=== PATIENT | female | born 1995 | race Caucasian/White ===

== ENCOUNTER → 2018-11-29 17:06 | Outpatient (CLI) | payer OTHER, BC, SELFPAY ==
[2018-11-29 14:50] VITALS: BMI 45.1
[2018-12-14 15:43] LABS: HPV Reflexed? NOT INDICATED
== END ==
PROVIDERS: Family Provider Family Medicine; PCP Family Medicine; Referring Provider Obstetrics & Gynecology; Visit Provider Obstetrics & Gynecology
DX: Z12.4 Encounter for screening for malignant neoplasm of cervix (principal)
CPT/HCPCS: 88175; G0145

== ENCOUNTER → 2020-05-16 13:58 | Outpatient (CLI) | payer OTHER, BC, SELFPAY ==
[2020-05-16 13:35] VITALS: BMI 44.9
[2020-05-16 15:01] LABS: Cholesterol 201 mg/dL (200); Glucose 98 mg/dL (74-106); High Density Lipoprotein 53 mg/dL; Thyroid Stim Hormone (TSH) 1.44 uIU/mL (0.358-3.74); Triglycerides 206 mg/dL; Very Low Density Lipoprotein 41 mg/dL (5-40)
== END ==
PROVIDERS: PCP Family Medicine; Referring Provider Nurse Practitioner Women's Health; Visit Provider Nurse Practitioner Women's Health
DX: Z13.1 Encounter for screening for diabetes mellitus (principal); Z13.220 Encounter for screening for lipoid disorders; Z13.29 Encounter for screening for other suspected endocrine disorder
CPT/HCPCS: 36415; 80061; 82947; 84443

== ENCOUNTER 2021-06-17 08:46 | Outpatient (CLI) | payer BC, SELFPAY ==
[2021-06-17 09:42] LABS: Hemoglobin A1c 5.4 % (3.8-5.6)
[2021-06-17 09:50] LABS: Vitamin D,25 Hydroxy 15.5 ng/mL
[2021-06-17 09:55] LABS: Cholesterol 159 mg/dL (200); Glucose 132 mg/dL (74-106); Triglycerides 247 mg/dL
[2021-06-17 09:56] LABS: High Density Lipoprotein 41 mg/dL; Thyroid Stim Hormone (TSH) 1.95 uIU/mL (0.358-3.74); Very Low Density Lipoprotein 49 mg/dL (5-40)
[2021-06-18 22:06] LABS: Chlamydia By Nucleic Acid AMP Negative (Negative)
[2021-06-19 10:46] LABS: Gonococcus By Nucleic Acid AMP Negative (Negative)
[2021-06-24 14:56] LABS: HPV Reflexed? NOT INDICATED
== END 2021-06-17 23:59 | disposition home or self-care (01) ==
PROVIDERS: PCP Family Medicine; Referring Provider Nurse Practitioner Women's Health; Visit Provider Nurse Practitioner Women's Health
DX: E28.2 Polycystic ovarian syndrome (principal); Z12.4 Encounter for screening for malignant neoplasm of cervix; Z11.3 Encounter for screening for infections with a predominantly sexual mode of transmission; Z13.1 Encounter for screening for diabetes mellitus; Z13.220 Encounter for screening for lipoid disorders; Z13.29 Encounter for screening for other suspected endocrine disorder
CPT/HCPCS: 36415; 80061; 82306; 82947; 83036; 84443; 87491; 87591; 88175; G0145

== ENCOUNTER 2021-06-21 08:33 | Outpatient (CLI) | payer BC, SELFPAY ==
--- NOTE | 2021-06-21 08:36 | BI_ITS ---
MAMMOGRAPHY - BILATERAL SCREENING REASON FOR EXAM: Female, 25 years old. Routine annual screening examination. PERTINENT HISTORY: Sister with breast cancer. Grandmother with breast cancer. Aunts with breast cancer. TECHNIQUE: Digital bilateral breast john (3D mammographic acquisition) in the CC and MLO projections. 2-D mediolateral oblique (MLO) and craniocaudad (CC) views of both breasts were obtained. CAD: Full Field Digital Mammography with Computer Added Detection was performed. COMPARISON: None. Baseline examination. FINDINGS: Breast Composition: The breasts are heterogeneously dense, which may obscure small masses. There are no dominant masses or suspicious calcifications. Small bilateral axillary lymph nodes. No other significant abnormalities are identified. BI/SCRN MAMM (CAD)W/JOHN BILAT IMPRESSION: Negative screening mammogram. Yearly followup mammogram recommended. (A) ASSESSMENT CATEGORY: BIRADS Category 2: Benign. A letter regarding these results will be sent to the patient by the facility within 30 days. Approximately 10% of breast cancers are not detected by mammography. A normal mammogram should not delay biopsy of a clinically suspicious abnormality. [id number] Electronically Signed: Sharif Acharya MD at 10:36 EDT ,
== END 2021-06-21 23:59 | disposition home or self-care (01) ==
LOC: OPBI 08:35
PROVIDERS: PCP Family Medicine; Referring Provider Nurse Practitioner Women's Health; Visit Provider Nurse Practitioner Women's Health
DX: Z12.31 Encounter for screening mammogram for malignant neoplasm of breast (principal)
CPT/HCPCS: 77063; 77067

== ENCOUNTER 2022-02-28 10:11 | Emergency (ER) | payer BC, SELFPAY ==
[2022-02-28 10:13] VITALS: BP 189/104; PULSE 116; RESP 17; TEMP 35.8; O2SAT 100; BMI 45.9
--- NOTE | 2022-02-28 10:27 | ED.VIS.BACK ---
HPI History of Present Illness Chief Complaint: Back Informant: patient Onset/Context/Timing Onset: Today (Awoke from sleep with right lower back pain radiating to buttocks and lateral side of right leg.) Context: Sudden Onset Injury: - (Unaware of any injury) Timing: Continuous Quality: Dull Location: Lumbar, Buttock and Right Leg Current Severity: Mild Maximum Severity: Moderate Worsened by: improves with Nothing Relieved by: Nothing Associated Symptoms Associated Symptoms: Radiation to Right Leg; Negative for Numbness, Tingling, Fever, Abdominal Pain, Dysuria, Unable to Ambulate, Unable to Transfer, Urinary Retention, Urinary Incontinence, Constipation or Fecal Incontinence Narrative Narrative: Patient is a 26-year-old female who presents with right lower back pain. She works at a childcare center. She does not know of any injury. She denies fever, chills night sweats. She denies bowel bladder dysfunction. Denies saddle paresthesia or anesthesia. She denies foot drop. She denies recent dental procedure. Prior similar symptoms: Yes (Several years ago.) Recent Illness/Hospitalization: No PFSH PFSH Medical History Cervical cancer screening COVID-19 Home Medications norethindrone 1 mg-ethinyl estradiol 20 mcg (24)-iron 75 mg (4) tablet (Blisovi 24 Fe) 1 tab PO DAILY #84 tabs 06/17/21 [Rx Last Taken Unknown] naproxen 500 mg tablet 500 mg PO BID #14 tabs 02/28/22 [Rx Last Taken Unknown] Allergy/AdvReac Type Severity Reaction Status Date / Time No Known Allergies Allergy Verified 02/28/22 10:12 Family History Mother Diabetes Thyroid disorder Grandmother Cancer ovarian Diabetes Father Hypertension Surgical History History of tonsillectomy Social History current occupational status: employed current occupation: [employer] in [place] Smoking Status: Never smoker alcohol intake: never substance use type: does not use caffeine: Yes what type of physical activity do you participate in: walking seatbelt use: always do you feel safe at home: Yes additional social history: single Works at [employer] in [place] and takes care of sister in the AM ROS ROS ED Constitutional Constitutional ED: Denies chills, fever(s), subjective, sweats or weight loss Respiratory/Chest Respiratory/Chest: Denies dyspnea or dyspnea on exertion Gastrointestinal Gastrointestinal: Denies abdominal pain, constipation, melena, nausea or vomiting Genitourinary Genitourinary ED: Denies dysuria or hematuria Musculoskeletal Musculoskeletal: Reports back pain; Denies arthralgias, myalgias or neck pain Integumentary Denies Abrasions or rash Neurologic Neurologic: Denies headache(s), paresthesias or weakness Hematologic/Lymphatic Hematologic/Lymphatic: Denies easy bleeding or easy bruising EXAM Physical Exam Const Vital Signs: 02/28/22 10:13 Temperature 96.5 F L Temperature Source Temporal Pulse Rate 116 H Respiratory Rate 17 Blood Pressure 189/104 H Blood Pressure Mean 132 Pulse Ox 100 Oxygen Delivery Method Room Air Positive well nourished, well developed and obese General Appearance ED: well developed and NAD; Negative for pallor Nutritional Appearance: obese HEENT Reports moist mucous membranes HEENT Narrative: Head is atraumatic normocephalic. Ears normal. Nares patent. There is no drainage. Eyes PERRL and EOMs intact bilaterally General Eye ED: Negative for pale conjunctiva or scleral icterus Neck no lymphadenopathy and supple Resp normal respiratory effort and clear to auscultation bilaterally Cardio regular rate, regular rhythm, S1 normal heart sound, S2 normal heart sound and no murmurs GI normal to inspection, nondistended, normoactive bowel sounds, soft to palpation, non-tender, non-distended and no masses Back/Spine normal to inspection; Negative for no thoracic nor lumbar tenderness Back/Spine Narrative: Patella and ankle reflex are 2+ and symmetric. EHLs intact. Sensation over L3, L4, L5 and S1 dermatome are intact. Gait was observed. There is no foot drop. She is able to walk on heels and toes. She is able to perform a 1 legged squat right leg and left leg. General Back: Negative for CVA tenderness Cervical Spine: Negative for cervical spine tenderness Thoracic Spine / Upper Back: paraspinal muscle tenderness Lumbar Spine / Lower Back: ROM limited and straight leg raise negative bilaterally Extremity normal to inspection and no clubbing, cyanosis or edema General Extremety ED: Negative for edema General Extremity: Negative for edema Neuro oriented x3 and no sensory deficits noted Sensorium / Orientation: alert Motor Exam: strength 5/5 throughout Deep Tendon Reflexes: Rt Patellar (L4): 2+, Lt Patellar (L4): 2+, Rt Ankle (S1): 2+ and Lt Ankle (S1): 2+ Deep Tendon Reflexes Back: Rt Patellar (L4): 2+, Lt Patellar (L4): 2+, Rt Ankle (S1): 2+ and Lt Ankle (S1): 2+ Plantar Reflex: Downgoing: bilateral Psych mental status grossly normal Skin no rashes or lesions noted and no wounds General Skin Exam: Negative for jaundice or pallor MDM MDM MDM Narrative Medical decision making narrative: History and physicals consistent with musculoskeletal low back pain. There is no concern for cauda equina or herniated disc. Since there is no contraindication patient was treated with NSAID. She was instructed to apply ice 6-10 times a day. She states she is off today. She was informed to avoid movement that exacerbates her pain. Discharge Plan Triage Chief Complaint: Back ED Provider: Dami Eldridge Dx/Rx/DC Orders Clinical Impression: Acute right-sided low back pain without sciatica, BMI 45.0-49.9, adult Instructions: ED Back Pain (Acute or Chronic) Prescriptions: New naproxen 500 mg tablet 500 mg PO BID Qty: 14 0RF No Action norethindrone-e.estradiol-iron [Blisovi 24 Fe] 1 mg-20 mcg (24)/75 mg (4) tablet 1 tab PO DAILY Qty: 84 4RF Primary Care Provider: Vikash Geller Referrals: Vikash Geller MD [Primary Care Provider] - 1 Week if not improving Activity Restrictions/Additional Instructions: 1. Avoid activity that causes you increased pain. 2. Apply ice 6-10 times a day Disposition Disposition: Home, Self Care
[2022-02-28] MEDS: Naproxen 250 MG Tablet 500 MG PO (10:31)
[2022-02-28] MEDS: HYDROcodone Bitartrate/Apap 5/325 Tablet PO (10:32)
== END 2022-02-28 10:43 | disposition home or self-care (01) ==
PROVIDERS: Emergency Provider Emergency Medicine; PCP Family Medicine; Visit Provider Emergency Medicine
DX: M54.50 Low back pain, unspecified (principal); Z68.42 Body mass index [BMI] 45.0-49.9, adult; E66.9 Obesity, unspecified; Z86.16 Personal history of COVID-19
CPT/HCPCS: 99283

== ENCOUNTER → 2022-07-23 | Outpatient (CLI) | payer BC, SELFPAY ==
--- NOTE | 2022-07-23 07:57 | BI_ITS ---
MAMMOGRAPHY - BILATERAL SCREENING REASON FOR EXAM: Female, 26 years old. Routine annual screening examination. PERTINENT HISTORY: Sister with breast cancer. Grandmother with breast cancer. TECHNIQUE: Digital bilateral breast john (3D mammographic acquisition) in the CC and MLO projections. 2-D mediolateral oblique (MLO) and craniocaudad (CC) views of both breasts were obtained. CAD: Full Field Digital Mammography with Computer Added Detection was performed. COMPARISON: Comparison is made with prior study June 21, 2021. FINDINGS: Breast Composition: The breasts are heterogeneously dense, which may obscure small masses. There are no dominant masses or suspicious calcifications. Stable small benign-appearing bilateral axillary lymph nodes. No other significant abnormalities are identified. There has been no significant change since the prior study. BI/SCRN MAMM (CAD)W/JOHN BILAT IMPRESSION: Stable bilateral screening mammogram. Yearly follow-up mammogram recommended. (A) ASSESSMENT CATEGORY: BIRADS Category 2: Benign. A letter regarding these results will be sent to the patient by the facility within 30 days. Approximately 10% of breast cancers are not detected by mammography. A normal mammogram should not delay biopsy of a clinically suspicious abnormality. [id number] Electronically Signed: Sharif Acharya MD at 9:44 EDT ,
== END | disposition home or self-care (01) ==
LOC: OPBI 07:55
PROVIDERS: PCP Family Medicine; Referring Provider Nurse Practitioner Women's Health; Visit Provider Nurse Practitioner Women's Health
DX: Z12.31 Encounter for screening mammogram for malignant neoplasm of breast (principal); Z80.3 Family history of malignant neoplasm of breast
CPT/HCPCS: 77063; 77067

== ENCOUNTER → 2022-09-22 | Outpatient (CLI) | payer BC, SELFPAY ==
[2022-09-22 14:46] LABS: Thyroid Stim Hormone (TSH) 2.58 uIU/mL (0.358-3.74)
[2022-09-22 14:49] LABS: hCG Titer Quant., Serum < 1 mIU/mL (1-3)
== END | disposition home or self-care (01) ==
LOC: PAVLAB 13:57
PROVIDERS: PCP Family Medicine; Referring Provider Nurse Practitioner Women's Health; Visit Provider Nurse Practitioner Women's Health
DX: R53.83 Other fatigue (principal); N91.2 Amenorrhea, unspecified
CPT/HCPCS: 36415; 84443; 84702

== ENCOUNTER → 2023-08-27 | Outpatient (CLI) | payer BC, SELFPAY ==
[2023-08-27 08:49] LABS: hCG Titer Quant., Serum 113 mIU/mL (1-3)
== END | disposition home or self-care (01) ==
LOC: LAB 07:57
PROVIDERS: PCP Family Medicine; Referring Provider Nurse Practitioner Women's Health; Visit Provider Nurse Practitioner Women's Health
DX: O26.859 Spotting complicating pregnancy, unspecified trimester (principal); Z3A.00 Weeks of gestation of pregnancy not specified
CPT/HCPCS: 36415; 84702; 86850; 86900; 86901

== ENCOUNTER → 2023-08-29 | Outpatient (CLI) | payer BC, SELFPAY ==
[2023-08-29 09:14] LABS: hCG Titer Quant., Serum 337 mIU/mL (1-3)
== END | disposition home or self-care (01) ==
LOC: OLS.ABSOLU 08:09 → LAB 08:11
PROVIDERS: PCP Family Medicine; Referring Provider Registered Nurse; Visit Provider Registered Nurse
DX: Z3A.00 Weeks of gestation of pregnancy not specified (principal)
CPT/HCPCS: 36415; 84702

== ENCOUNTER → 2023-09-01 | Outpatient (CLI) | payer BC, SELFPAY ==
[2023-09-01 18:41] LABS: hCG Titer Quant., Serum 1627 mIU/mL (1-3)
== END | disposition home or self-care (01) ==
LOC: LAB 16:12
PROVIDERS: Obstetrics & Gynecology; PCP Family Medicine; Referring Provider Registered Nurse; Visit Provider Registered Nurse
DX: O26.859 Spotting complicating pregnancy, unspecified trimester (principal); Z3A.00 Weeks of gestation of pregnancy not specified
CPT/HCPCS: 36415; 84702

== ENCOUNTER → 2023-09-11 | Outpatient (CLI) | payer BC, SELFPAY ==
[2023-09-11 14:10] LABS: hCG Titer Quant., Serum 20579 mIU/mL (1-3)
== END | disposition home or self-care (01) ==
LOC: PAVLAB 11:00
PROVIDERS: PCP Family Medicine; Referring Provider Obstetrics & Gynecology; Visit Provider Obstetrics & Gynecology
DX: O26.859 Spotting complicating pregnancy, unspecified trimester (principal); Z3A.00 Weeks of gestation of pregnancy not specified
CPT/HCPCS: 36415; 84702

== ENCOUNTER → 2023-09-13 | Outpatient (CLI) | payer BC, SELFPAY ==
[2023-09-13 12:20] LABS: hCG Titer Quant., Serum 27865 mIU/mL (1-3)
== END | disposition home or self-care (01) ==
PROVIDERS: PCP Family Medicine; Visit Provider Obstetrics & Gynecology
DX: O26.859 Spotting complicating pregnancy, unspecified trimester (principal)
CPT/HCPCS: 36415; 84702

== ENCOUNTER → 2023-09-16 | Outpatient (CLI) | payer BC, SELFPAY ==
--- NOTE | 2023-09-16 16:53 | US_ITS ---
STUDY: FIRST TRIMESTER OBSTETRICAL ULTRASOUND REASON FOR EXAM: Female, 27 years old viability LMP: 07/30/2023 TECHNIQUE: Transvaginal TECHNICAL QUALITY: Adequate. PRIOR ULTRASOUND: None. FINDINGS: There is visualization of a single gestational sac in a normal intrauterine position. The mean sac diameter (MSD) measures 22 mm, indicating an estimated gestational age (EGA) of 7 weeks, 1 days. The gestational sac shape is within normal limits. There is a visualized yolk sac. The yolk sac measures 3 mm. The placenta is non-visualized. There is visualization of a live embryo. The crown-rump length (CRL) measures 7 mm, indicating an estimated gestational age (EGA) of 6 weeks, 5 days. There is demonstrated cardiac activity with a heart rate of 1:30 bpm. The estimated gestation age (EGA) by LMP is 6 weeks, 6 days. The estimated date of delivery (BRITTANIE) by LMP is 05/05/2024. The estimated gestation age (EGA) by US is 7 weeks, 0 days. The estimated date of delivery (BRITTANIE) by US is 05/04/2024. The uterus measures 8.8 x 5.7 x 4.6 cm. There is no demonstrated uterine fibroid. The cervix is closed. The right ovary measures 3.0 x 2.2 x 2.0 cm. There is no right ovarian cyst. There is no visualized right adnexal mass or complex lesion. The left ovary measures 3.3 x 1.9 x 1.9 cm. There is no left ovarian cyst. There is no visualized left adnexal mass or complex lesion. There is no fluid in the cul de sac. US/Transvaginal w/Preg US IMPRESSION: Living intrauterine of 7 weeks 0 days as described above. Electronically Signed: Rian Virk MD at 9:36 EDT ,
== END | disposition home or self-care (01) ==
LOC: US 16:52
PROVIDERS: PCP Family Medicine; Referring Provider Obstetrics & Gynecology; Visit Provider Obstetrics & Gynecology
DX: O26.859 Spotting complicating pregnancy, unspecified trimester (principal); Z3A.00 Weeks of gestation of pregnancy not specified
CPT/HCPCS: 76817

== ENCOUNTER → 2023-09-18 | Outpatient (CLI) | payer BC, SELFPAY ==
[2023-09-21 05:06] LABS: Chlamydia By Nucleic Acid AMP Negative (Negative); Gonococcus By Nucleic Acid AMP Negative (Negative)
== END | disposition home or self-care (01) ==
LOC: LABSPEC 12:10
PROVIDERS: PCP Family Medicine; Referring Provider Advanced Practice Midwife; Visit Provider Advanced Practice Midwife
DX: Z34.90 Encounter for supervision of normal pregnancy, unspecified, unspecified trimester (principal)
CPT/HCPCS: 87491; 87591

== ENCOUNTER → 2023-10-08 | Outpatient (CLI) | payer BC, SELFPAY ==
[2023-10-08 18:13] LABS: Protein, Urine (Random) 12.7 mg/dL (<11.9); Protein:Creat Ratio 126 mg/g CRE (0-200)
== END | disposition home or self-care (01) ==
LOC: LAB 17:12
PROVIDERS: PCP Family Medicine; Referring Provider Advanced Practice Midwife; Visit Provider Advanced Practice Midwife
DX: O24.919 Unspecified diabetes mellitus in pregnancy, unspecified trimester (principal); Z3A.00 Weeks of gestation of pregnancy not specified; O99.210 Obesity complicating pregnancy, unspecified trimester
CPT/HCPCS: 82570; 84156; 87086; 87088

== ENCOUNTER → 2023-11-06 | Outpatient (CLI) | payer OTHER, SELFPAY ==
[2023-11-06 12:45] LABS: Absolute Lymphocyte Count 2.51 X10^3/uL (0.83-4.51); Absolute Neutrophil Count 8.6 X10^3/uL (2.0-7.7); Basophil# 0.04 X10^3/uL; Basophil% 0.3 % (0-1); Eosinophil# 0.07 X10^3/uL; Eosinophils% 0.6 % (0-5); Hematocrit 35.1 % (37-47); Hemoglobin 11.6 g/dL (12.0-15.0); Lymphocyte # 2.51 X10^3/ul (0.83-4.51); Lymphocyte % 21.1 % (19-41); Mean Corpuscular Hgb 27.2 pg (27.0-32.0); Mean Corpuscular Volume 82.2 fL (81-99); Mean Platelet Vol. 11.5 fl (6.2-12.0); Monocyte# 0.64 X10^3/uL; Monocyte% 5.4 % (0-10); NRBC Flagged by Analyzer 0 % (0-5); Neutrophil # 8.57 X10^3/uL (2.7-7.7); Neutrophil % 72.1 % (47-70); Platelet Count 262 K/mm3 (150-450); RBC Distribution Width CV 15.4 % (11.6-14.6); RBC Distribution Width SD 46.1 fl (35.1-43.9); Red Blood Count 4.27 M/mm3 (4.2-5.4); White Blood Count 11.9 K/mm3 (4.4-11.0)
[2023-11-06 13:49] LABS: ALB/GLOB Ratio 0.7 RATIO (0.9-2.4); AST(SGOT) 30 U/L (15-37); Alanine Aminotransfer ALT/SGPT 48 U/L (13-56); Albumin, Serum 3.2 g/dL (3.2-5.0); Alkaline Phosphatase 66 U/L (45-117); Anion Gap 7 (5-15); BUN 8 mg/dL (7-18); BUN/Creat Ratio 12.9 RATIO (10-20); Calcium,Total 9.9 mg/dL (8.5-10.1); Chloride 109 mmol/L (98-107); Creatinine, Serum 0.62 mg/dL (0.55-1.02); EST Glomerular Filtration Rate 124 mL/min (>60); Est Glom Filt Rate - Afr Amer 150 mL/min (>60); Globulin 4.4 g/dL (2.2-4.2); Glucose 102 mg/dL (74-106); Potassium 3.8 mmol/L (3.5-5.1); Protein, Total 7.6 g/dL (6.4-8.2); Sodium Level 137 mmol/L (136-145)
[2023-11-06 14:18] LABS: HIV - WCH Non-Reactive (Nonreactive); Hepatitis B Surface Antigen Non-Reactive (Nonreactive); Hepatitis C Antibody Non-Reactive (Nonreactive); Rubella IgG Reactive (Nonreactive); Syphilis Antibodies Non-reactive
== END | disposition home or self-care (01) ==
LOC: LAB 12:18
PROVIDERS: PCP Family Medicine; Referring Provider Advanced Practice Midwife; Visit Provider Advanced Practice Midwife
DX: O24.919 Unspecified diabetes mellitus in pregnancy, unspecified trimester (principal); O09.90 Supervision of high risk pregnancy, unspecified, unspecified trimester; Z3A.00 Weeks of gestation of pregnancy not specified
CPT/HCPCS: 36415; 80053; 83036; 84443; 85025; 86703; 86762; 86780; 86803; 86850; 86900; 86901; 87340

== ENCOUNTER → 2023-12-29 | Outpatient (CLI) | payer OTHER, SELFPAY | END | disposition home or self-care (01) | LOC: LABSPEC 15:16 | PROVIDERS: PCP Family Medicine; Referring Provider Advanced Practice Midwife; Visit Provider Advanced Practice Midwife | DX: O26.899 Other specified pregnancy related conditions, unspecified trimester (principal); R30.0 Dysuria; Z3A.00 Weeks of gestation of pregnancy not specified | CPT/HCPCS: 87086; 87088 ==

== ENCOUNTER → 2024-01-29 | Outpatient (CLI) | payer OTHER, SELFPAY ==
[2024-01-29 12:22] LABS: Absolute Lymphocyte Count 2.56 X10^3/uL (0.83-4.51); Absolute Neutrophil Count 11.6 X10^3/uL (2.0-7.7); Basophil# 0.04 X10^3/uL; Basophil% 0.3 % (0-1); Eosinophil# 0.06 X10^3/uL; Eosinophils% 0.4 % (0-5); Hematocrit 33.8 % (37-47); Lymphocyte # 2.56 X10^3/ul (0.83-4.51); Mean Corp Hgb Conc 32.5 g/dL (32-36); Mean Corpuscular Hgb 26.8 pg (27.0-32.0); Mean Corpuscular Volume 82.4 fL (81-99); Mean Platelet Vol. 12.2 fl (6.2-12.0); Monocyte# 0.65 X10^3/uL; Monocyte% 4.3 % (0-10); NRBC Flagged by Analyzer 0 % (0-5); Neutrophil # 11.64 X10^3/uL (2.7-7.7); Neutrophil % 77.1 % (47-70); Platelet Count 241 K/mm3 (150-450); RBC Distribution Width CV 15.2 % (11.6-14.6); RBC Distribution Width SD 45.1 fl (35.1-43.9); White Blood Count 15.1 K/mm3 (4.4-11.0)
[2024-01-29 13:21] LABS: HIV - WCH Non-Reactive (Nonreactive); Syphilis Antibodies Non-reactive
== END | disposition home or self-care (01) ==
LOC: BWCLAB 10:31
PROVIDERS: PCP Family Medicine; Referring Provider Obstetrics & Gynecology; Visit Provider Obstetrics & Gynecology
DX: O09.90 Supervision of high risk pregnancy, unspecified, unspecified trimester (principal); Z3A.00 Weeks of gestation of pregnancy not specified
CPT/HCPCS: 36415; 85025; 86703; 86780

== ENCOUNTER 2024-03-22 14:20 | Outpatient (CLI) | payer OTHER, SELFPAY ==
[2024-03-22] VITALS (7 sets, daily range): BP systolic 111–123; BP diastolic 55–67; PULSE 62–122; RESP 18; TEMP 36.4; O2SAT 80; BMI 50.2
[2024-03-22] MEDS: 0.9% Saline Lock 10 ML Syringe IV (15:37)
[2024-03-22] MEDS: Acetaminophen 500 MG Tablet 1000 MG PO (15:43)
[2024-03-22 15:48] LABS: Hematocrit 33.1 % (37-47); Mean Corp Hgb Conc 33.2 g/dL (32-36); Mean Corpuscular Hgb 26.3 pg (27.0-32.0); Mean Platelet Vol. 11.6 fl (6.2-12.0); Platelet Count 242 K/mm3 (150-450); RBC Distribution Width CV 15.9 % (11.6-14.6); RBC Distribution Width SD 44.7 fl (35.1-43.9); Red Blood Count 4.19 M/mm3 (4.2-5.4); White Blood Count 16.5 K/mm3 (4.4-11.0)
[2024-03-22 16:09] LABS: Protein, Urine (Random) < 6.0 mg/dL (<11.9)
[2024-03-22 16:15] LABS: AST(SGOT) 10 U/L (15-37); Alanine Aminotransfer ALT/SGPT 12 U/L (13-56); Creatinine, Serum 0.66 mg/dL (0.55-1.02); EST Glomerular Filtration Rate 115 mL/min (>60); Est Glom Filt Rate - Afr Amer 139 mL/min (>60); Estimated Creatinine Clearance 187.64 ml/min; Uric Acid 3.6 mg/dL (2.6-6.0)
--- NOTE | 2024-03-22 16:42 | OB.TRI.PN ---
Progress Notes Date of Service: 03/22/24 Progress Note: elevated bp in office 140 moderate variability reactive no decelerations category I tracing Primrose: no regular 33 week elevate dbps normal labs and repeat BP WNL headache improving dc home Laboratory Studies: Laboratory Tests 03/22/24 Range/Units 15:35 WBC 16.5 H (4.4-11.0) K/mm3 RBC 4.19 L (4.2-5.4) M/mm3 Hgb 11.0 L (12.0-15.0) g/dL Hct 33.1 L (37-47) % MCV 79.0 L (81-99) fL MCH 26.3 L (27.0-32.0) pg MCHC 33.2 (32-36) g/dL RDW Std Deviation 44.7 H (35.1-43.9) fl RDW Coeff of Dannielle 15.9 H (11.6-14.6) % Plt Count 242 (150-450) K/mm3 MPV 11.6 (6.2-12.0) fl Creatinine 0.66 (0.55-1.02) mg/dL Estim Creat Clear Calc 187.64 ml/min Est GFR (MDRD) Af Amer 139 (>60) mL/min Est GFR (MDRD) Non-Af 115 (>60) mL/min Uric Acid 3.6 (2.6-6.0) mg/dL AST 10 L (15-37) U/L ALT 12 L (13-56) U/L U Random Total Protein < 6.0 (<11.9) mg/dL Urine Creatinine 17.90 (NO RANGE EST.) mg/dL Protein/Creatinin Ratio TNP Blood Type A POSITIVE Antibody Screen NEGATIVE Charges/Coding Procedures Urinary/Genital [id number]-59xxx: [id number] non-stress test Interp Assessment & Plan (1) Hypertension affecting : COMMENT: Procardia XL 30mg started and then held. baseline labs done. baby ASA recommended. [facility] comanaging. echo 22 wk WNL. deliver 37 weeks. (2) Obesity affecting : COMMENT: BMI 48 in 1 TM. abnl HgA1C in 1 TM. encouraged healthy weight gain. (3) Diabetes: COMMENT: insulin managed by [facility], 2x weekly bpp at [facility] 32 on. (4) : QUALIFIERS: Weeks of gestation: 33 weeks Qualified Code(s): Z3A.33 - 33 weeks gestation of COMMENT: DOC ONLY, discussed NIPT and carrier, NT WNL, nl anatomy (5) Supervision of high risk , antepartum: COMMENT: PRR BRITTANIE 05/04/24 girl [place]
[2024-03-23 14:00] LABS: ALB/GLOB Ratio 0.7 RATIO (0.9-2.4); AST(SGOT) 13 U/L (15-37); Alanine Aminotransfer ALT/SGPT 14 U/L (13-56); Albumin, Serum 2.8 g/dL (3.2-5.0); Alkaline Phosphatase 97 U/L (45-117); Anion Gap 9 (5-15); BUN 8 mg/dL (7-18); BUN/Creat Ratio 12.8 RATIO (10-20); Calcium,Total 9.4 mg/dL (8.5-10.1); Chloride 110 mmol/L (98-107); Creatinine, Serum 0.63 mg/dL (0.55-1.02); EST Glomerular Filtration Rate 122 mL/min (>60); Est Glom Filt Rate - Afr Amer 148 mL/min (>60); Estimated Creatinine Clearance 196.58 ml/min; Globulin 4.3 g/dL (2.2-4.2); Glucose 120 mg/dL (74-106); Potassium 3.9 mmol/L (3.5-5.1); Protein, Total 7.1 g/dL (6.4-8.2); Sodium Level 137 mmol/L (136-145)
== END 2024-03-22 16:44 | disposition home or self-care (01) ==
LOC: WPOUT 14:29 → WP 14:29
PROVIDERS: PCP Family Medicine; Referring Provider Obstetrics & Gynecology; Visit Provider Obstetrics & Gynecology
DX: O16.3 Unspecified maternal hypertension, third trimester (principal); Z3A.33 33 weeks gestation of pregnancy; O99.213 Obesity complicating pregnancy, third trimester; O24.419 Gestational diabetes mellitus in pregnancy, unspecified control
CPT/HCPCS: 36415; 59025; 59050; 80053; 82565; 82570; 84156; 84450; 84460; 84550; 85027; 86850; 86900; 86901; 99221; A4216; G0378

== ENCOUNTER → 2024-04-07 | Outpatient (CLI) | payer OTHER, SELFPAY | END | disposition home or self-care (01) | LOC: LABSPEC 16:54 | PROVIDERS: PCP Family Medicine; Referring Provider Obstetrics & Gynecology; Visit Provider Obstetrics & Gynecology | DX: O09.90 Supervision of high risk pregnancy, unspecified, unspecified trimester (principal); Z3A.00 Weeks of gestation of pregnancy not specified | CPT/HCPCS: 87081 ==

== ENCOUNTER 2024-04-13 19:29 | Inpatient (IN) | payer OTHER, SELFPAY ==
[2024-04-13 19:23] VITALS: BMI 50.4
[2024-04-13 19:50] VITALS: RESP 18; TEMP 36.4
[2024-04-13 19:51] VITALS: BP 141/88; PULSE 112
[2024-04-13] MEDS: Lactated Ringers 1,000 ML 50 ML IV (20:00)
[2024-04-13 20:18] LABS: Absolute Lymphocyte Count 2.49 X10^3/uL (0.83-4.51); Absolute Neutrophil Count 12.8 X10^3/uL (2.0-7.7); Basophil# 0.04 X10^3/uL; Basophil% 0.2 % (0-1); Eosinophil# 0.03 X10^3/uL; Eosinophils% 0.2 % (0-5); Lymphocyte # 2.49 X10^3/ul (0.83-4.51); Lymphocyte % 15.5 % (19-41); Mean Corp Hgb Conc 33.3 g/dL (32-36); Mean Corpuscular Hgb 26.1 pg (27.0-32.0); Mean Corpuscular Volume 78.4 fL (81-99); Mean Platelet Vol. 11.8 fl (6.2-12.0); Monocyte# 0.61 X10^3/uL; Monocyte% 3.8 % (0-10); NRBC Flagged by Analyzer 0 % (0-5); Neutrophil % 79.7 % (47-70); Platelet Count 244 K/mm3 (150-450); RBC Distribution Width SD 45.1 fl (35.1-43.9); Red Blood Count 4.21 M/mm3 (4.2-5.4); White Blood Count 16.1 K/mm3 (4.4-11.0)
[2024-04-13 20:28] LABS: Bedside Glucose 140 mg/dL (74-106)
[2024-04-13] MEDS: miSOPROStol 25 MCG TABLET PO (20:56)
[2024-04-13 20:57] VITALS: BP 142/75; PULSE 99
[2024-04-13 21:13] LABS: Syphilis Antibodies Non-reactive
[2024-04-13 21:54] LABS: Bedside Glucose 119 mg/dL (74-106)
[2024-04-13 22:09] LABS: Partial Thromboplast Time 24.3 Seconds (24.1-36.2); Prothrombin Time (Protime)PT. 13.7 SECONDS (11.7-14.9)
[2024-04-13] MEDS: Insulin Glargine-YFGN 100 UNIT/ML Pen 48 UNIT SC (22:14)
[2024-04-13 22:15] LABS: AST(SGOT) 11 U/L (15-37); Alanine Aminotransfer ALT/SGPT 13 U/L (13-56); Creatinine, Serum 0.81 mg/dL (0.55-1.02); EST Glomerular Filtration Rate 91 mL/min (>60); Est Glom Filt Rate - Afr Amer 110 mL/min (>60); Estimated Creatinine Clearance 153.36 ml/min; Uric Acid 4.7 mg/dL (2.6-6.0)
[2024-04-13 22:27] LABS: LDH 155 U/L (84-246)
[2024-04-13 23:21] LABS: Bedside Glucose 97 mg/dL (74-106)
[2024-04-13] MEDS: NIFEdipine 30 MG Tablet PO (23:38)
[2024-04-13 23:46] LABS: Mucous, Urine 0 SEEN /hpf (<or=2+); Red Blood Cells-Urine 0 SEEN /hpf (0-5)
[2024-04-13 23:48] LABS: Color, Urine Yellow (Yellow); Glucose, Dipstick Normal (Normal); Ketone-Dipstick Negative (Negative); Leukocyte Esterase-Dipstick 500 /ul (Negative); Nitrite-Dipstick Negative (Negative); Occult Blood-Urine Negative /ul (Negative); Protein-Dipstick 15 mg/dl (Negative); Specific Gravity, Urine 1.015 (1.002-1.030); Urine Bilirubin Dipstick Negative (Negative); Urine Clarity Clear (Clear); Urine Urobilinogen Normal (Normal)
[2024-04-14] VITALS (37 sets, daily range): BP systolic 76–153; BP diastolic 40–88; PULSE 8–136; RESP 16–20; TEMP 36.1–37.1; O2SAT 79–98
[2024-04-14 00:15] LABS: Protein:Creat Ratio 188 mg/g CRE (0-200)
[2024-04-14 00:23] LABS: Bacteria RARE /hpf (None Seen); Squamous Epithelial Cells - UA 0-5 SEEN /hpf (5-10); Transitional Epithelial - Ur 0-5 SEEN /hpf (0-5); White Blood Cells 5-10 SEEN /hpf (0-5)
[2024-04-14] MEDS: miSOPROStol 50 MCG TABLET PO ×2 (00:38→06:47)
[2024-04-14 03:17] LABS: Bedside Glucose 78 mg/dL (74-106)
[2024-04-14 07:11] LABS: Bedside Glucose 101 mg/dL (74-106)
[2024-04-14] MEDS: 0.9% Normal Saline Single 100 ML IV.SOLN. INTRA-UTER (09:10)
--- NOTE | 2024-04-14 09:23 | HP.PCM.OB_ITS ---
HPI - General General Date of Admission: 04/13/24 HPI Narrative GINO SHARIF, is a 28 y/o @ 37 weeks who presents to L&D for IOL for chronic hypertension and diabetes. Maternal Data Information BRITTANIE Calculator Estimated Delivery Date Method Current WG Current Estimate 05/04/24 Ultrasound #1 37w 1d Other Estimates 04/30/24 Ultrasound #2 37w 5d PFSH PFSH Medical History (Updated 04/13/24 @ 20:20 by Tristan Belle) Headache Chronic hypertension Seasonal allergies Acute sinusitis Eustachian tube dysfunction Back pain of lumbar region with sciatica Back pain Fatigue Cervical cancer screening Family history of breast cancer in sister COVID-19 PCOS (polycystic ovarian syndrome) Home Medications ?Medication ?Instructions ?Recorded ?Last Taken ?Type PNV 153-FA 400 mcg-om3 35 mg-dha 1 tab PO DAILY Pregna ncy 10/02/23 04/13/24 History 25 mg-epa 5 mg-fish oil chew tablet insulin glargine 100 unit/mL 48 unit subcut QAM DM 04/13/24 History subcutaneous solution (Lantus U-100 Insulin) sucralfate 1 gram tablet (Carafate) 1 g PO BID reflux #60 tabs 01/29/24 03/30/24 Rx valacyclovir 1 gram tablet 1,000 mg PO .COMPLEX cold s ores #4 02/23/24 02/11/24 Rx tabs insulin glargine 100 unit/mL 48 unit subcut QHS DM 04/12/24 History subcutaneous solution (Lantus U-100 Insulin) insulin lispro 100 unit/mL 10 unit subcut QACLUNCH DM 02/26/24 03/22/24 12:00 History subcutaneous pen 2 units insulin lispro 100 unit/mL 10 unit subcut QAM DM 02/2504/13/24 History subcutaneous solution (Humalog U-100 Insulin) insulin lispro 100 unit/mL 32 unit subcut QACDINNER DM 02/26/24 04/13/24 History subcutaneous solution (Humalog U-100 Insulin) Allergy/AdvReac Type Severity Reaction Status Date / Time No Known Allergies Allergy Verified 04/07/24 15:10 Family History (Updated 04/13/24 @ 20:21 by Tristan Belle) Mother Diabetes Thyroid disorder Grandmother Diabetes Cancer ovarian Father Hypertension Sister Breast cancer Her2 + Surgical History [place] teeth extracted History of tonsillectomy Social History adopted: No household members: significant other current occupational status: employed current occupation: [employer] current occupational exposures/hazards: No pets and animals: Yes pets and animals: dog(s) history of recent travel: No sexually active: Yes Smoking Status: Never smoker alcohol intake: never substance use type: does not use well-balanced diet: daily or most days caffeine: No eating out: 1-3 times/week during the past year weight has: remained stable what type of physical activity do you participate in: walking frequency: 1-2 times per week duration: 15-30 minutes/day funmilayo/buddhist: None seatbelt use: always do you feel safe at home: Yes additional social history: Anjel Belen [employer] [facility] History 1 Elective abortions Hx Para 0 Spontaneous abortions Hx # Term Pregnancies Ectopic pregnancies Hx # Pregnancies Multiple births # of living children Visit Details Expected Delivery Route/Plan Labor Preferences- CB/BF classes: [] labor support person: [] labor intervention preferences: [] pain management options preferred: [] cut cord/dad catch: [] : [] PP control planned: [] discussed possible routes of delivery and associated risks: [] special requests: [] Plans Covid status: [] Flu vaccine: .considering Tdap vaccine: given Rhogam: [] LARC form signed: [] Problem list reviewed and updated with the most current plan of care details and appropriate orders placed. Relevant counseling for the gestational age provided. Continue routine care and follow up unless otherwise noted in visit notes/problem list details OB Flowsheet Initial Weight: Not Recorded Date -?-?-?-?-?-?-?-?-?-?-?-?- EGA Weight BP Urine Prot -?-?-?-?-?-?-?-?-?-?-?-?- Glucose FHR FuHt Pres Dilation -?-?-?-?-?-?-?-?-?-?-?-?- Effaced St Visit Note 10/08/23 -?-?-?-?-?-?-?-?-?-?-?-?- 10w 1d 306 lb 136/95 142/98 140/87 -?-?-?-?-?-?-?-?-?-?-?-?- 168 -?-?-?-?-?-?-?-?-?-?-?-?- KW-CRL 34. measu ring 10.4 today. accepts NIPT. on Metformin for DM fastings 105-115. Managed by PCP. Referral placed to Dr. Zuleta. HTN labs ordered with NOB. KW-CRL 34. measuring 10.4 to day. accepts NIPT. on Metformin for DM fastings 105- 115. Managed by PCP. Referral placed to MFM. HTN and TSH labs ordered with NOB. Discussed with SM. Start procardia 30XL daily and EKG ordered. start ASA 11/06/23 -?-?-?-?-?-?-?-?-?-?-?-?- 14w 2d 298 lb 156/101 136/89 Negative -?-?-?-?-?-?-?-?-?-?-?-?- Negative 160 -?-?-?-?-?-?-?-?-?-?-?-?- SM- no vb lof BS controlled not taking procardia or metformin MFM managing BS 12/04/23 -?-?-?-?-?-?-?-?-?-?-?-?- 18w 2d 293 lb 8 oz 135/83 Nega tive -?-?-?-?-?-?-?-?-?--?-?-?- Negative 164 -?-?-?-?-?-?-?-?-?-?-?-?- JV- no complaint s today. BS controlled and BP controlled. 12/29/23 -?-?-?-?-?-?-?-?-?-?-?-?- 21w 6d 297 lb 130/85 Negative -?-?-?-?-?-?-?-?-?-?-?-?- Negative 163 -?-?-?-?-?-?-?-?-?-?-?-?- KW- work in for UTI sx. burning and increased frequency. culture and rx sent. reviewed US and genetic testing. 01/29/24 -?-?-?-?-?-?-?-?-?-?-?-?- 26w 2d 301 lb 2 oz 135/88 -?-?-?-?-?-?-?-?-?-?-?-?- 153 -?-?-?-?-?-?-?-?-?-?-?-?- JV- patient comp lains of worsening reflux becoming severe. She was on protonix prior to . plan to start carafate and take the protonix again. we discussed category c risks vs benefits. sees mfm next week for insulin adjustment. has some elevated fasting levels. she has growth scans monthly set up along with twice weekly bpps starting 28 weeks. 02/26/24 -?-?-?-?-?-?-?-?-?-?-?-?- 30w 2d 306 lb 4 oz 121/73 Nega tive -?-?-?-?-?-?-?-?-?-?-?-?- Negative 160 33 -?-?-?-?--?-?-?-?-?-?-?-?- SM- no vb lof go od fm no regular ctx tdap today reviewed testing and visits BS controlled sees MFM 03/07/24 -?-?-?-?-?-?-?-?-?-?-?-?- 31w 5d 304 lb 8 oz 137/86 Nega tive -?-?-?-?-?-?-?-?-?-?-?-?- Negative 166 42 -?-?-?-?-?-?-?-?-?-?-?-?- JV- no lof, vagi nal bleeding, or dec fm. has twice weekly bpp's ordered. GLucose log stable. growth scan 03/03 showed ac in 92nd %. 03/14/24 -?-?-?-?-?-?-?-?-?-?-?-?- 32w 5d 309 lb 4 oz 141/91 133/87 -?-?-?-?-?-?--?-?-?-?-?-?- 150 -?-?-?-?-?-?-?-?-?-?-?-?- SM- nst for tach ycardia during bpp 03/22/24 -?-?-?-?-?-?-?-?-?-?-?-?- 33w 6d 312 lb 145/85 Negative -?-?-?-?-?-?-?-?-?-?-?-?- Negative -?-?-?-?-?-?-?-?-?-?-?-?- to l and d for h eadache and elevated bps 03/25/24 -?-?-?-?-?-?-?-?-?-?-?--?- 34w 2d 319 lb 4 oz 120/83 Nega tive -?-?-?-?-?-?-?-?-?-?-?-?- Negative 167 -?-?-?-?-?-?-?-?-?-?-?-?- JV- no headaches or blurry vision. bp stable. glucose log stable. planning 37 week delivery. GBs next visit. 04/07/24 -?-?-?-?-?-?-?-?-?-?-?-?- 36w 1d 315 lb 136/85 Trace -?-?-?-?-?-?-?-?-?-?-?-?- Negative 150 0 -?-?-?-?-?-?-?-?-?-?-?-?- SM- difficult to keep on monitor but reassuring status bp stable plan IOL 37 weeks, gbs collected ROS Constitutional Constitutional: Denies change in weight, fatigue, fever(s), headache(s), poor appetite or weakness Eyes Eyes: Denies blurry vision, change in vision, seeing flashes or spots in vision ENT HEENT: Denies dizziness, headache(s), loss taste/smell or sore throat Cardiovascular Cardiovascular: Denies chest pain, dizziness, dyspnea, irregular heart rhythm, leg edema, palpitations, rapid heart rate or vomiting Respiratory/Chest Respiratory/Chest: Denies chest tightness, cough, dyspnea or breast pain Gastrointestinal Gastrointestinal: Denies abdominal pain, anorexia, constipation, cramping, diarrhea, hemorrhoids, vomiting or weight changes Genitourinary Genitourinary: Denies dysuria, flank pain, genital lesions, genital pain, urinary frequency or urinary urgency Musculoskeletal Musculoskeletal: Denies back pain, difficulty walking, joint pain, limited range of motion, muscle cramps or numbness Integumentary Integumentary: Denies lesions or unusual bruising Neurologic Neurologic: Denies abnormal movements, abnormal speech, dizziness, numbness, seizure-like activity or syncope Psychiatric Psychiatric: Denies anxiety, behavioral changes, change in appetite, change in libido, cognitive impairment, confusion, depression, difficulty concentrating, hallucinations or suicidal thoughts Endocrine Endocrinology: Denies excessive sweating, polydipsia or polyuria Hematologic/Lymphatic Hematologic/Lymphatic: Denies easy bleeding, easy bruising or lymphadenopathy Allergic/Immunologic Allergic/Immunologic: Denies itchy eyes, lip swelling, seasonal rhinorrhea, rhinitis, throat swelling, tongue swelling, eczemia, wheezing or asthma Vital Signs Vital Signs Vital Signs: 04/13/24 19:50 04/13/24 19:50 04/13/24 19:50 Temperature 97.5 F L Temperature Source Temporal Pulse Rate Respiratory Rate 18 Blood Pressure BP Systolic BP Diastolic Pulse Ox 04/13/24 19:51 04/13/24 19:51 04/13/24 20:57 Temperature Temperature Source Pulse Rate 112 H Respiratory Rate Blood Pressure 141/88 H 142/75 H BP Systolic 141 142 BP Diastolic 88 75 Pulse Ox 04/13/24 20:57 04/14/24 00:31 04/14/24 00:31 Temperature Temperature Source Pulse Rate 99 100 Respiratory Rate Blood Pressure 126/78 H BP Systolic 126 BP Diastolic 78 Pulse Ox 04/14/24 00:31 04/14/24 00:32 04/14/24 00:32 Temperature Temperature Source Temporal Pulse Rate Respiratory Rate 18 Blood Pressure BP Systolic BP Diastolic Pulse Ox 98 04/14/24 00:32 04/14/24 00:32 04/14/24 02:55 Temperature 97.4 F L Temperature Source Temporal Temporal Pulse Rate Respiratory Rate Blood Pressure BP Systolic BP Diastolic Pulse Ox 04/14/24 02:55 04/14/24 02:55 04/14/24 02:56 Temperature 97.0 F L Temperature Source Pulse Rate Respiratory Rate 18 Blood Pressure 132/64 H BP Systolic 132 BP Diastolic 64 Pulse Ox 04/14/24 02:56 04/14/24 07:15 04/14/24 07:15 Temperature Temperature Source Temporal Pulse Rate 85 Respiratory Rate 18 Blood Pressure BP Systolic BP Diastolic Pulse Ox 04/14/24 07:15 04/14/24 07:17 04/14/24 07:17 Temperature 97.6 F L Temperature Source Pulse Rate 91 Respiratory Rate Blood Pressure 122/73 H BP Systolic 122 BP Diastolic 73 Pulse Ox Weight Weight: 312 lb 9.848 oz Body Mass Index (BMI) 50.4 Physical Exam Const alert, oriented x3, no apparent distress and healthy appearing General Appearance: cooperative; Negative for anxious HEENT normocephalic Face and Sinus: normal facial exam Eyes EOMs intact bilaterally and no scleral icterus General Eye: normal appearance of both eyes Neck full ROM and supple Lymph Lymphatic: no lymphadenopathy noted Chest Chest: abnormal inspection of the chest Resp normal respiratory effort Effort and Inspection: able to speak in complete sentences Cardio regular rate GI soft to palpation and non-tender Inspection: gravid Palpation: soft; Negative for tender external exam normal Back/Spine no CVA tenderness Extremity normal to inspection, full ROM and no clubbing, cyanosis or edema General Extremity: Negative for calf tenderness or edema Skin Lesions: no lesions Rashes: no rashes Psych mental status grossly normal Labs Labs Labs: Blood Type A POSITIVE Antibody Screen NEGATIVE Hct 33.0 % (37-47) L Hgb 11.0 g/dL (12.0-15.0) L Obstetrics Ultrasound Syphilis Total Ab Non-reactive Rubella IgG Antibody Reactive (Nonreactive) Hep Bs Antigen Non-Reactive (Nonreactive) Hepatitis C Antibody Non-Reactive (Nonreactive) Chlamydia DNA (ROCÍO) Negative (Negative) N.gonorrhoeae DNA (ROCÍO) Negative (Negative) HIV 1&2 Antibody Non-Reactive (Nonreactive) Miscellaneous Test Assessment & Plan (1) macrosomia: (2) tachycardia affecting care of mother, delivered: (3) Obesity affecting : COMMENT: BMI 48 in 1 TM. abnl HgA1C in 1 TM. encouraged healthy weight gain. (4) Hypertension affecting : COMMENT: Procardia XL 30mg started and then held. baseline labs done. baby ASA recommended. M comanaging. echo 22 wk WNL. deliver 37 weeks. (5) Diabetes: COMMENT: insulin managed by [facility], 2x weekly bpp at [facility] 32 on. (6) : QUALIFIERS: Weeks of gestation: 36 weeks Qualified Code(s): Z3A.36 - 36 weeks gestation of COMMENT: DOC ONLY, GBS Negative, discussed NIPT and carrier, NT WNL, nl anatomy (7) Supervision of high risk , antepartum: COMMENT: PRR BRITTANIE 05/04/24 girl Nova [place]over PLAN: Plan Patient presents IOL, plan management for with quiles/ pitocin/AROM. She had cytotec given last night x3 and is now 3cm. quiles bulb placed this am without complications Pain management: plans epidural. GBS negative. Management of any complications: none I have reviewed the [facility] and made any clinically relevant updates.
[2024-04-14] MEDS: Acetaminophen 500 MG Tablet PO (10:27)
[2024-04-14 11:26] LABS: Bedside Glucose 89 mg/dL (74-106)
[2024-04-14] MEDS: Oxytocin 15 Units/NS 250ml 15 UNITS/250 ML IV.SOLN 2 UNITS IV (12:13)
[2024-04-14] MEDS: Lactated Ringers 1,000 ML 999 ML IV ×2 (12:46→14:35)
[2024-04-14] MEDS: fentaNYL-bupivacaine (epidural) 100 ML BAG EPIDURAL ×2 (13:48→19:59)
--- NOTE | 2024-04-14 14:07 | PCM.PN.BLA ---
Progress Note patient is laying on her right side and getting comfortable with epidural. Nurses are unable to find the heart rate easily and asking from arom and internals. Patient agrees with plan current tracing: FHT: Moderate variability reactive no decelerations category I tracing [place]: irregular Contractions cx: 5.5/70/-3, membranes ruptured with a large amount of clear fluid. IUP and FSE placed without difficulty reviewed tracing abnormalities since last note: no changes A/P: IOL for chtn and gdm continue pitocin.
[2024-04-14] MEDS: Ondansetron 4 MG/2 ML Vial IV ×2 (14:26→20:52)
[2024-04-14] MEDS: ePHEDrine Sulfate 50 MG/ML Ampul 10 MG IV ×3 (14:27→14:45)
[2024-04-14 14:29] LABS: Bedside Glucose 84 mg/dL (74-106)
[2024-04-14] MEDS: Lactated Ringers 1,000 ML 200 ML IV ×2 (15:58→20:55)
[2024-04-14 16:32] LABS: Bedside Glucose 75 mg/dL (74-106)
[2024-04-14 17:18] LABS: Bedside Glucose 81 mg/dL (74-106)
[2024-04-14 18:36] LABS: Bedside Glucose 74 mg/dL (74-106)
--- NOTE | 2024-04-14 19:36 | PCM.PN.BLA ---
Progress Note patient is sleeping on her side. Has no complaints. current tracing: FHT: 150 Moderate variability reactive no decelerations category I tracing [employer]: pattern of q1x 3 then spaces out3-4 minutes reviewed tracing abnormalities since last note: no change A/P: protracted labor- no change in cervix since the quiles bulb came out and AROM 6 hours ago. on 18 mu/min of pit. plan to go up to 20 then half the dose and start climbing back to 20. patient states that she is ready now for a section, however tracing is very reassuring and she is not in an adequate contraction pattern yet.
[2024-04-14 20:23] LABS: Bedside Glucose 81 mg/dL (74-106)
[2024-04-14 21:21] LABS: Bedside Glucose 87 mg/dL (74-106)
[2024-04-14 22:17] LABS: Bedside Glucose 86 mg/dL (74-106)
[2024-04-14 23:31] LABS: Bedside Glucose 83 mg/dL (74-106)
[2024-04-15] VITALS (25 sets, daily range): BP systolic 99–152; BP diastolic 56–98; PULSE 77–113; RESP 12–20; TEMP 36.1–37.6; O2SAT 96–100
[2024-04-15 00:28] LABS: Bedside Glucose 78 mg/dL (74-106)
[2024-04-15 01:28] LABS: Bedside Glucose 81 mg/dL (74-106)
[2024-04-15] MEDS: Lactated Ringers 1,000 ML 200 ML IV (02:06)
[2024-04-15 02:42] LABS: Bedside Glucose 74 mg/dL (74-106)
[2024-04-15] MEDS: fentaNYL-bupivacaine (epidural) 100 ML BAG EPIDURAL (02:53)
[2024-04-15 03:27] LABS: Bedside Glucose 92 mg/dL (74-106)
[2024-04-15 04:24] LABS: Bedside Glucose 88 mg/dL (74-106)
[2024-04-15] MEDS: Acetaminophen 500 MG Tablet PO (05:30)
[2024-04-15 05:34] LABS: Bedside Glucose 93 mg/dL (74-106)
--- NOTE | 2024-04-15 06:20 | PN_ITS ---
Progress Note patient remains comfortable with epidural. we have gone to max pit x 2, a pit wash and restart. current tracing: FHT: Moderate variability reactive no decelerations category I tracing [place]: still has inadequate Contractions cx: 5.5/70/-2 (no change since 2 pm yesterday = 16 + hours) reviewed tracing abnormalities since last note:no significan changes A/P: failed induction plan for primary section risks, benefits, alternatives discussed.
[2024-04-15 06:35] LABS: Bedside Glucose 89 mg/dL (74-106)
[2024-04-15] MEDS: Sodium Citrate/Citric Acid 30 ML UDC PO (07:06)
[2024-04-15] MEDS: Cefazolin 3 GM in Syringe 1 EACH IV (07:11)
[2024-04-15] MEDS: Azithromycin 500 MG in 0.9% Normal Saline (250mL Bag) 250 ML 255 MG IV (07:14)
[2024-04-15] MEDS: Carboprost Tromethamine 250 MCG/ML Ampul IM (07:47)
[2024-04-15] MEDS: Loperamide 2 MG Capsule 4 MG PO (08:15)
[2024-04-15] MEDS: Ondansetron 4 MG/2 ML Vial IV (08:20)
[2024-04-15] MEDS: Oxytocin 15 Units/NS 250ml 15 UNITS/250 ML IV.SOLN 83 UNITS IV (08:27)
--- NOTE | 2024-04-15 08:34 | OP.PCM_ITS ---
Assessment & Plan (1) Failure to progress in first stage of labor: (2) macrosomia: (3) tachycardia affecting care of mother, delivered: (4) Obesity affecting : COMMENT: BMI 48 in 1 TM. abnl HgA1C in 1 TM. encouraged healthy weight gain. (5) Hypertension affecting : COMMENT: Procardia XL 30mg started and then held. baseline labs done. baby ASA recommended. [facility] comanaging. echo 22 wk WNL. deliver 37 weeks. (6) Diabetes: COMMENT: insulin managed by [facility], 2x weekly bpp at [facility] 32 on. (7) : QUALIFIERS: Weeks of gestation: 36 weeks Qualified Code(s): Z3A.36 - 36 weeks gestation of COMMENT: DOC ONLY, GBS Negative, discussed NIPT and carrier, NT WNL, nl anatomy (8) Supervision of high risk , antepartum: COMMENT: PRR BRITTANIE 05/04/24 girl [place] Maternal Data Information BRITTANIE Calculator Estimated Delivery Date Method Current WG Current Estimate 05/04/24 Ultrasound #1 37w 2d Other Estimates 04/30/24 Ultrasound #2 37w 6d Final BRITTANIE: 05/04/24 Operative Report (OB) Cecarean Details Procedure Type: low transverse Date of Procedure: 04/15/24 Procedure Start Time: 07:33 Procedure Stop Time: 08:11 Time of Delivery: 07:41 Pre-Operative Diagnosis: Arrrest of Descent and Suspected cephalopelvic disproportion Post-Operative Diagnosis: Same as Pre-operative diagnosis Classification: [place] Type of Anesthesia: Epidural Antibiotic Given: Ancef 3 grams IV x1 and Zithromax 500 mg/5 mL X1 Drain: [place] to straight drain Estimated Blood Loss: 350cc Findings Description of surgery: The patient stalled in dilation x 17 hours despite max pit and pit wash the max pit again. macrosomia was also suspected. The decision was made to proceed with a section. Epidural anesthesia was found to be adequate. [place] catheter was placed and a vaginal prep was performed. The patient was placed in the dorsal supine position with leftward tilt. Patient was prepped and draped in the normal ster ile fashion. Pfannenstiel skin incision was made with the scalpel and carried through to the underlying layer of fascia with the scalpel. Fascia was nicked in the midline and the incision extended laterally. The rectus bellies were dissected off superiorly and inferiorly with out complication both sharply and bluntly. The peritoneum was entered digitally. The incision was stretched and a low transverse uterine incision was made with the scalpel. The infant's head was delivered atraumatically followed by the anterior and posterior shoulders without complication the rest of the delivered. The cord was clamped and cut and the infant was handed off to awaiting nurse. The placenta was delivered spontaneously immediately following and was noted to be intact and have a three-vessel cord. The uterus was exteriorized cleared of all clots and debris, and the incision was closed with #1 Vicryl. The ovaries and fallopian tubes were noted to be within normal limits. The uterus was returned to the maternal abdomen and gutters were cleared of all clots and debris. The peritoneum was closed with 3-0 Monocryl in a running fashion. Fascia was closed with 0 PDS in a running fashion. Subcutaneous tissue was copiously irrigated and the skin was closed with 3-0 Monocryl in a subcuticular fashion. Mepilex dressing was applied without complication. Patient was taken to recovery in stable condition. It was discussed with the patient that based on the clinical information obtained during this encounter, combined with her history, at this time I would recommend repeat section for future deliveries if further pregnancies are desired and the baby is suspected to be just as big or bigger than the current size of this baby.. Surgical findings: viable female apgars 8/8, morbidly obese abdomen, normal uterus, tubes, ovaries. Presentation: Vertex Amniotic Membrane Rupture Type: Artificial Amniotic Fluid Description: Clear Placental Delivery Description: Expressed Placenta Disposition: [facility] Specimen collected: No Cord Vessel Description: 3 Vessels Cord Entanglement: Around neck x 1, loose Nuchal Cord Compression: Without compression A gender: Female (1 minute): 8 (5 minute): 8 Delayed Cord Clamping: Yes Community Support Associate inside phone sales: Yes Food Counter Attendant: Evelio Parks Tasks completed by funeral director's assistant: Closing and Retracting Additional assistant news director?: No Complications Complications: No Multi Select Codes Urinary/Genital Urinary/Genital CPT Codes: 21225 delivery only
[2024-04-15] MEDS: Ketorolac 30 MG/ML Syringe IV ×2 (09:33→15:28)
--- NOTE | 2024-04-15 09:38 | NURSING ---
pericare, pad changed.
[2024-04-15 10:00] LABS: Bedside Glucose 116 mg/dL (74-106)
--- NOTE | 2024-04-15 10:12 | NURSING ---
As per Dr. Paulino, decision time for [place] Csection was at 0600, however another patient was complete and ready to push and Marck Meyers Csection was delayed due to delivery of another patient and not taken to OR until 0711.
[2024-04-15] MEDS: Insulin Glargine-YFGN 100 UNIT/ML Pen 24 UNIT SC ×2 (10:33→21:39)
[2024-04-15] MEDS: Acetaminophen 500 MG Tablet 1000 MG PO ×2 (13:39→20:40)
[2024-04-15] MEDS: Insulin Lispro 100 UNIT/ML INSULN.PEN SC (13:40)
[2024-04-15] MEDS: oxyCODONE 5 MG Tablet PO (14:00)
[2024-04-15] MEDS: 0.9% Saline Lock 10 ML Syringe IV (15:29)
[2024-04-15 16:06] LABS: Bedside Glucose 110 mg/dL (74-106)
[2024-04-15] MEDS: Insulin Lispro 100 UNIT/ML INSULN.PEN 16 UNIT SC (18:10)
--- NOTE | 2024-04-15 20:04 | DCINST_ITS ---
Discharge Instructions Diet Discharge Diet: No restrictions DC O2, CPAP, BIPAP needs Home O2 Discharge instructions: No Dressing / Incision Discharge Activity: May Not Drive (for 2 weeks or while taking narcotic pain medications.), May Shower and May Take a Tub Bath (in 7 days.) May resume sexual activity in: 4-6 weeks Weight Bearing Status: Full weight bearing Lifting Restrictions: 20 pounds Dressing / Incision Call your doctor if your incision/area has: Continuous Slow Oozing, Sudden Increased Bleeding, Increased Pain/ Swelling, Increased Redness and Foul Smelling Discharge Call your doctor if you observe: Fever of 101 or Higher and Using more than 1 pad per hour Suture Line Care: Avoid Pulling/Pushing and Avoid Pinching/Bending Cleanse incision/area with: Soap & Water and Keep Dressing Clean & Dry Follow Up Care Please Follow Up With: Dorothy Bangura DO When: Call [phone] to make an appointment for an incision check in 1-2 weeks. Test Results: Test results from this visit will be discussed in further detail at your follow- up appointment, if applicable. Discharge Plan Admission Admit Date/Time: 04/13/24 19:29 Primary Reason for Your Visit: section Attending Provider: Dorothy Bangura Primary Care Provider: Vikash Geller Discharge Orders/Prescriptions Prescriptions: New insulin glargine-yfgn 100 unit/mL (3 mL) Insulin Pen 24 unit subcut QHS 30 Days Qty: 7.2 3RF ibuprofen 600 mg Tablet 600 mg PO Q6H Qty: 30 0RF insulin glargine-yfgn 100 unit/mL (3 mL) Insulin Pen 24 unit subcut QAM 30 Days Qty: 7.2 0RF insulin lispro [Humalog KwikPen Insulin] 100 unit/mL Insulin Pen 5 unit subcut BREAKFAST 30 Days Qty: 1.5 0RF insulin lispro [Humalog KwikPen Insulin] 100 unit/mL Insulin Pen 16 unit subcut DINNER 30 Days Qty: 4.8 0RF insulin lispro [Humalog KwikPen Insulin] 100 unit/mL Insulin Pen 5 unit subcut LUNCH 30 Days Qty: 1.5 0RF ibuprofen 800 mg tablet 800 mg PO Q8H PRN (Reason: pain) Qty: 30 0RF oxycodone-acetaminophen [Percocet] 5-325 mg tablet 1 tab PO Q4H PRN (Reason: pain) 7 Days Qty: 20 0RF Rx Instructions: 1-2 tabs q 4 hrs as needed for pain Continued PNV [id number] 400 mcg-35 mg- 25 mg-5 mg tablet,chewable 1 tab PO DAILY sucralfate [Carafate] 1 gram tablet 1 g PO BID Qty: 60 6RF Rx Instructions: crush pill and add water, then drink Discontinued valacyclovir 1 gram tablet 1,000 mg PO .COMPLEX Qty: 4 0RF Rx Instructions: 1,000 mg orally 2 tabs at onset and repeat 12 hr for cold sores; No Action insulin glargine [Lantus U-100 Insulin] 100 unit/mL solution 48 unit subcut QAM insulin lispro [Humalog U-100 Insulin] 100 unit/mL solution 10 unit subcut QAM insulin lispro [Humalog U-100 Insulin] 100 unit/mL solution 32 unit subcut QACDINNER insulin lispro 100 unit/mL insulin pen 10 unit subcut QACLUNCH Patient Comments: relayed per patient, 10 with breakfast, 10 with lunch and 32 units with dinner insulin glargine [Lantus U-100 Insulin] 100 unit/mL solution 48 unit subcut QHS Referrals / Follow Up: Vikash Geller MD [Primary Care Provider] - Disposition Disposition (needs filled in before D/C Order can be placed): Home, Self Care
[2024-04-15] MEDS: Enoxaparin 40 MG/0.4 ML Syringe SC (20:40)
[2024-04-15] MEDS: Ibuprofen 600 MG Tablet PO (21:31)
[2024-04-15 21:58] LABS: Bedside Glucose 103 mg/dL (74-106)
[2024-04-16] MEDS: Acetaminophen 500 MG Tablet 1000 MG PO ×3 (01:16→13:54)
[2024-04-16 01:19] VITALS: BP 139/69; PULSE 95; RESP 16; TEMP 36.6; O2SAT 96
[2024-04-16] MEDS: Ibuprofen 600 MG Tablet PO ×2 (03:39→10:24)
[2024-04-16 03:40] VITALS: BP 109/65; PULSE 81; RESP 18; TEMP 36.6; O2SAT 96
[2024-04-16 06:10] LABS: Hemoglobin 8.5 g/dL (12.0-15.0); Mean Corp Hgb Conc 32.7 g/dL (32-36); Mean Corpuscular Volume 79.5 fL (81-99); Mean Platelet Vol. 12.2 fl (6.2-12.0); Platelet Count 205 K/mm3 (150-450); RBC Distribution Width CV 16.1 % (11.6-14.6); RBC Distribution Width SD 46.2 fl (35.1-43.9); Red Blood Count 3.27 M/mm3 (4.2-5.4); White Blood Count 17.8 K/mm3 (4.4-11.0)
[2024-04-16 06:23] LABS: Bedside Glucose 98 mg/dL (74-106)
[2024-04-16 08:20] VITALS: BP 119/69; PULSE 90; RESP 16; TEMP 36.4; O2SAT 97
[2024-04-16] MEDS: Enoxaparin 40 MG/0.4 ML Syringe SC (08:39)
--- NOTE | 2024-04-16 09:25 | PCM.PN.OB ---
Subjective Subjective Patient is sitting in bedside chair comfortably without complaints. She states that she slept on an off during the night. Lochia is mild and pain is minimal. She wants to go home today if possible Objective Data Objective Data Vital Signs: Vital Signs Temp Pulse Resp BP Pulse Ox O2 Del Method 97.5 F L 90 16 119/69 97 Room Air 04/16/24 08:20 04/16/24 08:20 04/16/24 08:20 04/16/24 08:20 04/16/24 08:20 04/16/24 08:20 Oxygen Delivery Method Room Air Weight: 312 lb 9.848 oz Body Mass Index (BMI) 50.4 Intake & Output: Intake and Output for Last 24 Hours 04/14/24 04/15/24 04/16/24 23:59 23:59 23:59 Intake Total 4123.74 / 4123.74 5645.60 / 5645.60 Output Total 1250 / 1250 3100 / 3100 Balance 2873.74 / 2873.74 2545.60 / 2545.60 Lab / Micro Data 04/16/24 06:00 04/13/24 20:20 Labs: Laboratory Results - last 24 hr 04/15/24 09:08: POC Glucose 116 H 04/15/24 15:35: POC Glucose 110 H 04/15/24 21:37: POC Glucose 103 04/16/24 06:00: WBC 17.8 H, RBC 3.27 L, Hgb 8.5 L, Hct 26.0 L, MCV 79.5 L, MCH 26.0 L, MCHC 32.7, RDW Std Deviation 46.2 H, RDW Coeff of Dannielle 16.1 H, Plt Count 205, MPV 12.2 H, POC Glucose 98 ROS Constitutional Constitutional: Reports systems reviewed and no addt'l complaints, except as documented Cardiovascular Cardiovascular: Denies chest pain, dizziness, dyspnea or irregular heart rhythm Respiratory/Chest Respiratory/Chest: Denies cough, pain on inspiration or shortness of breath at rest Gastrointestinal Gastrointestinal: Denies abdominal pain, nausea or vomiting Genitourinary Genitourinary: Denies burning urination Musculoskeletal Musculoskeletal: Denies muscle cramps, muscle spasms or muscle weakness Neurologic Neurologic: Denies confusion, dizziness, headache(s) or lack of coordination Psychiatric Psychiatric: Denies anxiety, behavioral changes or depression Physical Exam HEENT normocephalic Resp normal respiratory effort and normal air movement GI soft to palpation, non-tender and non-distended Rectal Exam: other Other Details: Incision is clean, dry, and intact no CVA tenderness Extremity normal to inspection General Extremity: edema bilateral (trace ) Assessment & Plan (1) Status post section: (2) Failure to progress in first stage of labor: (3) tachycardia affecting care of mother, delivered: (4) Obesity affecting : COMMENT: BMI 48 in 1 TM. abnl HgA1C in 1 TM. encouraged healthy weight gain. (5) Hypertension affecting : COMMENT: Procardia XL 30mg started and then held. baseline labs done. baby ASA recommended. M comanaging. echo 22 wk WNL. deliver 37 weeks. (6) Diabetes: COMMENT: insulin managed by [facility], 2x weekly bpp at [facility] 32 on. (7) : QUALIFIERS: Weeks of gestation: 36 weeks Qualified Code(s): Z3A.36 - 36 weeks gestation of COMMENT: DOC ONLY, GBS Negative, discussed NIPT and carrier, NT WNL, nl anatomy (8) Supervision of high risk , antepartum: COMMENT: PRR BRITTANIE 05/04/24 girl [place] PLAN: Plan s/p LTCS PPD # 1 1. routine post care 2. breast feeding- support given but wants to bottle feed 3. rh positive 4. rubella immune 5. diabetes- plan is to half her dose of insulin and continue current routine until can see her pcp or endo 6. ok to dc to home today
[2024-04-16] MEDS: Senna/Docusate Sodium 1 Tablet PO (10:23)
[2024-04-16] MEDS: Insulin Lispro 100 UNIT/ML INSULN.PEN SC (10:24)
[2024-04-16] MEDS: Insulin Glargine-YFGN 100 UNIT/ML Pen 24 UNIT SC (10:26)
[2024-04-16 11:00] LABS: Bedside Glucose 107 mg/dL (74-106)
[2024-04-16 12:35] VITALS: BP 124/85; PULSE 93; RESP 14; TEMP 37.1; O2SAT 97
[2024-04-16 13:04] LABS: Bedside Glucose 118 mg/dL (74-106)
== END 2024-04-16 14:00 | disposition home or self-care (01) | DRG 786 ==
PROVIDERS: Obstetrics & Gynecology; Admitting Provider Obstetrics & Gynecology; PCP Family Medicine; Referring Provider Obstetrics & Gynecology; Visit Provider Obstetrics & Gynecology
DX: O63.0 Prolonged first stage (of labor) (principal); O24.12 Pre-existing type 2 diabetes mellitus, in childbirth; O10.02 Pre-existing essential hypertension complicating childbirth; O99.214 Obesity complicating childbirth; E66.01 Morbid (severe) obesity due to excess calories; Z79.4 Long term (current) use of insulin; O62.0 Primary inadequate contractions; O76 Abnormality in fetal heart rate and rhythm complicating labor and delivery; O69.2XX0 Labor and delivery complicated by other cord entanglement, with compression, not applicable or unspecified; Z86.16 Personal history of COVID-19; Z37.0 Single live birth; O33.9 Maternal care for disproportion, unspecified; O32.4XX0 Maternal care for high head at term, not applicable or unspecified; Z3A.37 37 weeks gestation of pregnancy; Z80.3 Family history of malignant neoplasm of breast
CPT/HCPCS: 59025; 59050; 81001; 82565; 82570; 82962; 83615; 84156; 84450; 84460; 84550; 85025; 85027; 85610; 85730; 86780; 86850; 86900; 86901; A4216; J2405

== ENCOUNTER → 2024-04-27 | Outpatient (CLI) | payer OTHER, SELFPAY ==
[2024-04-27 17:05] LABS: Absolute Lymphocyte Count 2.81 X10^3/uL (0.83-4.51); Absolute Neutrophil Count 10.3 X10^3/uL (2.0-7.7); Basophil# 0.07 X10^3/uL; Basophil% 0.5 % (0-1); Eosinophil# 0.15 X10^3/uL; Eosinophils% 1.1 % (0-5); Hematocrit 34.7 % (37-47); Hemoglobin 10.9 g/dL (12.0-15.0); Lymphocyte # 2.81 X10^3/ul (0.83-4.51); Lymphocyte % 20.2 % (19-41); Mean Corp Hgb Conc 31.4 g/dL (32-36); Mean Corpuscular Hgb 25.2 pg (27.0-32.0); Mean Corpuscular Volume 80.1 fL (81-99); Mean Platelet Vol. 11.3 fl (6.2-12.0); Monocyte# 0.51 X10^3/uL; Monocyte% 3.7 % (0-10); NRBC Flagged by Analyzer 0 % (0-5); Neutrophil # 10.29 X10^3/uL (2.7-7.7); Neutrophil % 74.1 % (47-70); Platelet Count 434 K/mm3 (150-450); RBC Distribution Width CV 14.7 % (11.6-14.6); RBC Distribution Width SD 43.4 fl (35.1-43.9); Red Blood Count 4.33 M/mm3 (4.2-5.4); White Blood Count 13.9 K/mm3 (4.4-11.0)
== END | disposition home or self-care (01) ==
LOC: BWCLAB 15:58
PROVIDERS: PCP Family Medicine; Referring Provider Nurse Practitioner Women's Health; Visit Provider Nurse Practitioner Women's Health
DX: D64.9 Anemia, unspecified (principal)
CPT/HCPCS: 36415; 85025

== ENCOUNTER → 2024-05-25 | Outpatient (CLI) | payer OTHER, SELFPAY ==
[2024-05-25 11:43] LABS: ALB/GLOB Ratio 1.2 RATIO (0.9-2.4); AST(SGOT) 26 U/L (<=31); Alanine Aminotransfer ALT/SGPT 34 U/L (<=34); Albumin, Serum 4.3 g/dL (3.5-5.0); Alkaline Phosphatase 112 U/L (35-104); Anion Gap 14 (5-15); BUN 10 mg/dL (4-19); Calcium,Total 9.7 mg/dL (7.6-11.0); Carbon Dioxide 21.9 mmol/L (21.0-32.0); Chloride 103 mmol/L (98-108); Cholesterol 198 mg/dL (<=200); EST Glomerular Filtration Rate 104 (>60); Globulin 3.5 g/dL (2.2-4.2); Glucose 124 mg/dL (70-99); High Density Lipoprotein 45 mg/dL; Low Density Lipoprotein Calc. 96 mg/dL; Protein, Total 7.8 g/dL (5.9-8.4); Sodium Level 139 mmol/L (133-145); Total Bilirubin 0.36 mg/dL (0.00-1.30); Triglycerides 283 mg/dL; Very Low Density Lipoprotein 57 mg/dL (5-40)
[2024-05-25 18:55] LABS: Microalbumin:Creatinine Ratio 1849.6 mg/g CRE
== END | disposition home or self-care (01) ==
LOC: LAB 10:18
PROVIDERS: PCP Family Medicine; Referring Provider Nurse Practitioner Family; Visit Provider Nurse Practitioner Family
DX: E11.9 Type 2 diabetes mellitus without complications (principal)
CPT/HCPCS: 36415; 80053; 80061; 82043; 82570; 84443

== ENCOUNTER → 2024-09-07 | Outpatient (CLI) | payer OTHER, SELFPAY ==
[2024-09-07 12:29] LABS: Glucose 131 mg/dL (70-99)
== END | disposition home or self-care (01) ==
LOC: LAB 10:38
PROVIDERS: PCP Family Medicine; Referring Provider Nurse Practitioner Family; Visit Provider Nurse Practitioner Family
DX: E11.9 Type 2 diabetes mellitus without complications (principal)
CPT/HCPCS: 36415; 82947

== ENCOUNTER → 2025-01-27 | Outpatient (CLI) | payer OTHER, SELFPAY ==
--- NOTE | 2025-01-27 12:00 | BI_ITS ---
EXAM: SCRN MAMM (CAD)W/JOHN BILAT DATE: 01/27/2025 CLINICAL HISTORY: F, Age 29 y/o , BREAST CANCER SCREENING TECHNIQUE: Procedure Code: [id number] Modality: MG Procedure: SCRN MAMM (CAD)W/JOHN BILAT COMPARISON: Prior exam(s) were compared FINDINGS: TISSUE DENSITY: The breasts are heterogeneously dense, which may obscure small masses. Bilateral Breast Mammographic Findings: No suspicious masses, calcifications or other abnormalities are identified. BI/SCRN MAMM (CAD)W/JOHN BILAT IMPRESSION: No mammographic evidence of malignancy in either breast. Recommend bilateral a nnual screening mammography. Given family history of breast cancer, consider supplemental annual screening w ith breast MRI which can be staggered at 6 month intervals from the bilateral annual screening mammography. OVERALL FINAL ASSESSMENT BI-RADS 1: NEGATIVE. RECOMMENDATION: Routine annual follow-up in 1 Year Additional Recommendation none A letter with findings and recommendations will be mailed to the patient. Reading Location: [id number]
== END | disposition home or self-care (01) ==
LOC: OPBI 12:06
PROVIDERS: PCP Family Medicine; Referring Provider Advanced Practice Midwife; Visit Provider Advanced Practice Midwife
DX: Z12.31 Encounter for screening mammogram for malignant neoplasm of breast (principal)
CPT/HCPCS: 77063; 77067